=== PATIENT | male | born 1995 | race Caucasian/White ===

== ENCOUNTER 2024-02-26 19:35 | Outpatient (REF) | payer SELFPAY | END 2024-02-26 19:36 | disposition home or self-care (01) | LOC: LBN 19:35 | PROVIDERS: Visit Provider Nurse Practitioner Family | DX: L98.8 Other specified disorders of the skin and subcutaneous tissue (principal); N50.89 Other specified disorders of the male genital organs | CPT/HCPCS: 87070; 87205 ==